=== PATIENT | female | born 1975 | race Caucasian/White ===

== ENCOUNTER 2017-07-18 15:26 | Outpatient (CLI) | payer OTHER | END 2017-07-18 15:27 | disposition home or self-care (01) | LOC: BICMAMMO 15:26 | PROVIDERS: ATTEND Obstetrics & Gynecology | DX: Z12.31 Encounter for screening mammogram for malignant neoplasm of breast (principal); Z80.3 Family history of malignant neoplasm of breast | CPT/HCPCS: 77063; 77067 ==

== ENCOUNTER 2018-07-21 15:15 | Outpatient (CLI) | payer OTHER ==
--- NOTE | 2018-07-21 15:54 | MMO ---
Bilateral MAMMO Bilat Screen [facility]. CLINICAL HISTORY: Patient is 42 years old and is seen for screening. The patient has the following family history of breast cancer: maternal aunt, at age 30, GREAT. The patient has no personal history of cancer. VIEWS: The views performed were: bilateral craniocaudal with tomosynthesis and bilateral mediolateral oblique with tomosynthesis. FILMS COMPARED: The present examination has been compared to prior imaging studies performed at [facility] on 07/22/2012, 06/28/2016, 07/03/2016 and 07/18/2017. MAMMOGRAM FINDINGS: There are scattered fibroglandular densities. There are no suspicious masses, suspicious calcifications, or new areas of architectural distortion. IMPRESSION: THERE IS NO MAMMOGRAPHIC EVIDENCE OF MALIGNANCY. A ROUTINE FOLLOW-UP MAMMOGRAM IN 1 YEAR IS RECOMMENDED. THE RESULTS OF THIS EXAM WERE SENT TO THE PATIENT. ACR BI-RADS Category 1 - Negative MAMMOGRAPHY NOTE: 1. A negative mammogram report should not delay a biopsy if a dominant of clinically suspicious mass is present. 2. Approximately 10% to 15% of breast cancers are not detected by mammography. 3. Adenosis and dense breasts may obscure an underlying neoplasm.
== END 2018-07-21 15:16 | disposition home or self-care (01) ==
LOC: BICMAMMO 15:15
PROVIDERS: ATTEND Obstetrics & Gynecology
DX: Z12.31 Encounter for screening mammogram for malignant neoplasm of breast (principal); Z80.3 Family history of malignant neoplasm of breast
CPT/HCPCS: 77063; 77067

== ENCOUNTER 2020-12-21 13:07 | Outpatient (CLI) | payer BC | END 2020-12-21 13:08 | disposition home or self-care (01) | LOC: BICMAMMO 13:07 | PROVIDERS: ATTEND Obstetrics & Gynecology | DX: Z12.31 Encounter for screening mammogram for malignant neoplasm of breast (principal); Z80.3 Family history of malignant neoplasm of breast | CPT/HCPCS: 77063; 77067 ==

== ENCOUNTER 2021-12-26 09:29 | Outpatient (CLI) | payer BC | END 2021-12-26 09:30 | disposition home or self-care (01) | LOC: BICMAMMO 09:29 | PROVIDERS: ATTEND Obstetrics & Gynecology | DX: Z12.31 Encounter for screening mammogram for malignant neoplasm of breast (principal); Z80.3 Family history of malignant neoplasm of breast | CPT/HCPCS: 77063; 77067 ==

== ENCOUNTER 2022-03-27 10:14 | Outpatient (CLI) | payer BC | END 2022-03-27 10:15 | disposition home or self-care (01) | LOC: BICMAMMO 10:14 | PROVIDERS: ATTEND Surgery | DX: N63.10 Unspecified lump in the right breast, unspecified quadrant (principal); N63.20 Unspecified lump in the left breast, unspecified quadrant | CPT/HCPCS: 77066; G0279 ==

== ENCOUNTER 2022-04-17 09:23 | Outpatient (CLI) | payer BC | END 2022-04-17 09:24 | disposition home or self-care (01) | LOC: BICMRI 09:23 | PROVIDERS: ATTEND Specialist | DX: N63.20 Unspecified lump in the left breast, unspecified quadrant (principal); N63.10 Unspecified lump in the right breast, unspecified quadrant | CPT/HCPCS: 82565; A9577; C8908 ==

== ENCOUNTER → 2022-05-03 | Day surgery (SDC) | payer BC | END | disposition home or self-care (01) | LOC: BICULT 12:19 | PROVIDERS: ATTEND Surgery | PROC: 0HBV3ZX Excision of Bilateral Breast, Percutaneous Approach, Diagnostic (ICD-10-PCS; principal; 2022-05-03) | DX: N60.11 Diffuse cystic mastopathy of right breast (principal); N60.12 Diffuse cystic mastopathy of left breast; N61.1 Abscess of the breast and nipple | CPT/HCPCS: 19083; 88305 ==

== ENCOUNTER 2022-09-26 05:55 | Inpatient (IN) | payer BC ==
[2022-09-19 14:32] VITALS: BMI 36.0
[2022-09-26] MEDS ORDERED: Fentanyl 250 MCG/5 ML VIAL ONE (06:42)
[2022-09-26] MEDS ORDERED: SUGAMMADEX SODIUM 200 MG/2 ML VIAL ONE (06:42)
[2022-09-26] MEDS ORDERED: Heparin 5,000 UNITS/ML VIAL ONE (06:42)
[2022-09-26] MEDS ORDERED: Bupivacaine HCl 0.5%/Epinephrine 1:200,000/PF 30 ml Vial ONE (07:10)
[2022-09-26] MEDS ORDERED: Midazolam HCl 2 mg/2 ml Vial ONE (07:21)
[2022-09-26] MEDS ORDERED: Sodium Chloride 0.9% 100 ML ONE (07:28)
[2022-09-26] MEDS ORDERED: CEFAZOLIN 2 GM VIAL ONE (07:28)
[2022-09-26] MEDS ORDERED: Rocuronium Bromide 50 MG/5 ML VIAL ONE (07:29)
[2022-09-26] MEDS ORDERED: Lidocaine 1% PF 5 ML VIAL ONE (07:50)
[2022-09-26] MEDS ORDERED: Ondansetron PF 4 MG/2 ML Vial ONE (07:50)
[2022-09-26] MEDS ORDERED: Ketorolac Tromethamine 30 MG/ML VIAL ONE (07:50)
[2022-09-26] MEDS ORDERED: Dexamethasone 20 MG/5 ML VIAL ONE (07:50)
[2022-09-26] MEDS ORDERED: PROPOFOL 200 MG/20 ML VIAL ONE (07:50)
[2022-09-26] MEDS ORDERED: Rocuronium Bromide 10 MG/ML (10ML VIAL) ONE (07:50)
[2022-09-26] MEDS ORDERED: Lidocaine 1% (PF) 30 ML VIAL ONE (08:00)
[2022-09-26] MEDS ORDERED: Ipratropium/Albuterol 3 ML NEB NEB PRN (10:41)
[2022-09-26] MEDS ORDERED: Glucagon 1 MG/ML KIT IM PRN (10:41)
[2022-09-26] MEDS ORDERED: Promethazine HCl 25 MG/ML VIAL IM PRN (10:41)
[2022-09-26] MEDS ORDERED: Dextrose 5% in Water 1,000 ML IV PRN (10:41)
[2022-09-26] MEDS ORDERED: Morphine 2 MG/ML VIAL SLOW IVP PRN (10:41)
[2022-09-26] MEDS ORDERED: Dextrose 50% Abboject 50 ML SYRINGE SLOW IVP PRN (10:41)
[2022-09-26] MEDS ORDERED: Ondansetron PF 4 MG/2 ML Vial IVP PRN (10:41)
[2022-09-26] MEDS ORDERED: hydrALAZINE 20 MG/ML VIAL SLOW IVP PRN (10:41)
[2022-09-26] MEDS ORDERED: Morphine 4 MG/ML VIAL SLOW IVP PRN (10:41)
[2022-09-26] MEDS ORDERED: diphenhydrAMINE 50 MG/ML VIAL IVP PRN (10:41)
[2022-09-26] MEDS ORDERED: fentaNYL 50 mcg/mL 1 mL Vial ONE ×3 (11:15→11:45)
[2022-09-26] MEDS ORDERED: HYDROmorphone 0.5 MG/0.5 ML SYRINGE ONE ×3 (12:00→12:37)
[2022-09-26] MEDS: Ketorolac Tromethamine 30 MG/ML VIAL IVP SCH ×3 (16:54→22:57)
[2022-09-26] MEDS: D5 1/2 NS w/20 mEq KCL 1,000 ML IV SCH ×2 (16:55→22:58)
[2022-09-26] MEDS: CEFAZOLIN 2 GM in Sodium Chloride 0.9% 100 ML IVPB SCH ×2 (16:56→22:59)
[2022-09-26] MEDS: fentaNYL 50 mcg/mL 1 mL Vial SLOW IVP PRN (17:10)
[2022-09-26] MEDS: Hydrocodone-Acetamin 15 ML UDCUP PO PRN (18:29)
[2022-09-27] MEDS: fentaNYL 50 mcg/mL 1 mL Vial SLOW IVP PRN ×2 (01:44→11:25)
[2022-09-27] MEDS: D5 1/2 NS w/20 mEq KCL 1,000 ML IV SCH ×3 (03:22→17:31)
[2022-09-27] MEDS: Ketorolac Tromethamine 30 MG/ML VIAL IVP SCH ×4 (05:23→23:00)
[2022-09-27 05:54] LABS: #Neutrophils 11.2 thou/uL (1.40-6.50); %Basophils 0.2 % (0.0-1.0); %Monocytes 7.7 % (0.0-10.0); %Neutrophils 84.8 % (42.0-75.0); Hemoglobin 10.5 g/dL (12.0-16.0); Mean Corpuscular HGB CONC 33.7 g/dL (32.0-36.0); Mean Corpuscular Hemoglobin 30.6 pg (27.0-31.0); Mean Platelet Volume 10.5 fL (7.4-10.4); Platelet Count 267 10x3/uL (130-400); RBC Distribution Width 12.3 % (11.5-14.5); Red Blood Cell (RBC) Count 3.43 mill/uL (4.20-5.40); White Blood Cell (WBC) Count 13.2 10x3/uL (4.8-10.8)
[2022-09-27] MEDS: Pantoprazole 40 MG VIAL IVP SCH (08:11)
[2022-09-27 09:16] LABS: Anion Gap 12 mmol/L (10-20); BUN (Urea Nitrogen) 10 mg/dL (7.0-18.7); Calc. Creatinine Clearance 135 mL/min (70-130); Calcium 8.4 mg/dL (7.8-10.44); Carbon Dioxide 27 mmol/L (22-29); Chloride 100 mmol/L (98-107); Estimated GFR 102; Glucose 171 mg/dL (70-105); Potassium 3.3 mmol/L (3.5-5.1); Sodium 136 mmol/L (136-145)
[2022-09-28] MEDS: D5 1/2 NS w/20 mEq KCL 1,000 ML IV SCH ×2 (05:06→11:48)
[2022-09-28] MEDS: Ketorolac Tromethamine 30 MG/ML VIAL IVP SCH (05:06)
[2022-09-28 08:19] VITALS: BP 102/72; TEMP 97.1
[2022-09-28] MEDS: Hydrocodone-Acetamin 15 ML UDCUP PO PRN (09:36)
[2022-09-28] MEDS: Pantoprazole 40 MG VIAL IVP SCH (09:37)
== END 2022-09-28 11:55 | disposition home or self-care (01) | DRG 328 ==
LOC: SDC 05:55 → SURG A 10:42
PROVIDERS: ADMIT Surgery; ATTEND Surgery
PROC: 0D154ZA Bypass Esophagus to Jejunum, Percutaneous Endoscopic Approach (ICD-10-PCS; principal; 2022-09-26)
PROC: 0BQT4ZZ Repair Diaphragm, Percutaneous Endoscopic Approach (ICD-10-PCS; 2022-09-26)
PROC: 8E0W4CZ Robotic Assisted Procedure of Trunk Region, Percutaneous Endoscopic Approach (ICD-10-PCS; 2022-09-26)
DX: K21.9 Gastro-esophageal reflux disease without esophagitis (principal); K44.9 Diaphragmatic hernia without obstruction or gangrene; G43.909 Migraine, unspecified, not intractable, without status migrainosus; F32.A Depression, unspecified; I10 Essential (primary) hypertension; F41.9 Anxiety disorder, unspecified; J45.909 Unspecified asthma, uncomplicated; Z90.49 Acquired absence of other specified parts of digestive tract; Z98.890 Other specified postprocedural states; Z82.49 Family history of ischemic heart disease and other diseases of the circulatory system; R11.0 Nausea; E66.01 Morbid (severe) obesity due to excess calories; Z68.36 Body mass index [BMI] 36.0-36.9, adult
CPT/HCPCS: 36415; 80048; 85025; C1889; C9113; J1100; J1170; J1644; J1650; J1885; J2001; J2250; J2405; J2704; J3010; J3480; J3490

== ENCOUNTER 2023-08-20 11:53 | Outpatient (CLI) | payer BC | END 2023-08-20 11:54 | disposition home or self-care (01) | LOC: BICMAMMO 11:53 | PROVIDERS: ATTEND Obstetrics & Gynecology | DX: Z12.31 Encounter for screening mammogram for malignant neoplasm of breast (principal); Z80.3 Family history of malignant neoplasm of breast; Z91.89 Other specified personal risk factors, not elsewhere classified | CPT/HCPCS: 77063; 77067 ==

== ENCOUNTER 2024-03-26 14:01 | Outpatient (CLI) | payer BC | END 2024-03-26 14:02 | disposition home or self-care (01) | LOC: BICMAMMO 14:01 | PROVIDERS: ATTEND Nurse Practitioner Family | DX: N64.4 Mastodynia (principal); N64.89 Other specified disorders of breast | CPT/HCPCS: 76642; 77066; G0279 ==